=== PATIENT | female | born 1960 | race Caucasian/White ===

== ENCOUNTER → 2019-09-30 15:14 | Outpatient (CLI) | payer OTHER, SELFPAY ==
--- NOTE | ~2019-09-30 | MM_ITS ---
EXAMINATION: MM screening [facility] BI w [place] HISTORY: Screening mammogram TECHNIQUE: Craniocaudal and mediolateral oblique 3-D tomosynthesis images were obtained and synthetic 2-D images were generated. CAD analysis was submitted and interpreted. COMPARISON: 06/02/2018, 04/05/2017, 12/29/2015 BREAST PARENCHYMAL COMPOSITION: The breasts are heterogeneously dense, which may obscure small masses . FINDINGS: There is no evidence of suspicious mass, calcification, or architectural distortion to sugg est malignancy in either breast. There has been no suspicious interval change. IMPRESSION: 1. No mammographic evidence of malignancy. 2. Recommend routine screening mammography in one year. BI-RADS Category 1: Negative Reviewed, dictated and finalized at location B.
== END ==
PROVIDERS: PCP Internal Medicine; Visit Provider Internal Medicine
DX: Z12.31 Encounter for screening mammogram for malignant neoplasm of breast (principal)
CPT/HCPCS: 77063; 77067

== ENCOUNTER → 2020-10-17 15:16 | Outpatient (CLI) | payer OTHER, SELFPAY ==
--- NOTE | ~2020-10-17 | MM_ITS ---
EXAMINATION: MM screening [facility] BI w [place] HISTORY: Screening mammogram TECHNIQUE: Craniocaudal and mediolateral oblique 3-D tomosynthesis images were obtained and synthetic 2-D images were generated. CAD analysis was submitted and interpreted. COMPARISON: 09/30/2019, 06/02/2018, 04/05/2017 BREAST PARENCHYMAL COMPOSITION: The breasts are heterogeneously dense, which may obscure small masses . FINDINGS: There is no evidence of suspicious mass, calcification, or architectural distortion to sugg est malignancy in either breast. There has been no suspicious interval change. IMPRESSION: 1. No mammographic evidence of malignancy. 2. Recommend routine screening mammography in one year. BI-RADS Category 1: Negative Reviewed, dictated and finalized at location A.
== END ==
PROVIDERS: Visit Provider Internal Medicine
DX: Z12.31 Encounter for screening mammogram for malignant neoplasm of breast (principal)
CPT/HCPCS: 77063; 77067

== ENCOUNTER → 2022-01-15 13:48 | Outpatient (CLI) | payer OTHER, SELFPAY ==
--- NOTE | ~2022-01-15 | MM_ITS ---
EXAMINATION: MM screening [facility] w [place] HISTORY: Screening TECHNIQUE: Craniocaudal and mediolateral oblique 3-D tomosynthesis images were obtained and synthetic 2-D images were generated. CAD analysis was submitted and interpreted. COMPARISON: Comparison to multiple prior studies sequentially, with oldest reviewed study dated 08/25. BREAST PARENCHYMAL COMPOSITION: The breasts are heterogeneously dense, which may obscure small masses FINDINGS: There is no evidence of suspicious mass, calcification, or architectural distortion to sugg est malignancy in either breast. There has been no suspicious interval change. IMPRESSION: 1. No mammographic evidence of malignancy. 2. Recommend routine screening mammography in one year. BI-RADS Category 1: Negative Reviewed, dictated and finalized at location A. WARE SYSTEMS ENGINEER
== END ==
PROVIDERS: PCP Internal Medicine; Visit Provider Internal Medicine
DX: Z12.31 Encounter for screening mammogram for malignant neoplasm of breast (principal)
CPT/HCPCS: 77063; 77067

== ENCOUNTER → 2023-04-22 15:15 | Outpatient (CLI) | payer OTHER, SELFPAY ==
--- NOTE | ~2023-04-22 | MM_ITS ---
EXAMINATION: MM screening [facility] w [place] HISTORY: Screening TECHNIQUE: Craniocaudal and mediolateral oblique 3-D tomosynthesis images were obtained and synthetic 2-D images were generated. CAD analysis was submitted and interpreted. COMPARISON: Comparison to multiple prior studies sequentially, with oldest reviewed study dated 12/03. BREAST PARENCHYMAL COMPOSITION: Dense: The breasts are heterogeneously dense, which may obscure small masses FINDINGS: There is no evidence of suspicious mass, calcification, or architectural distortion to sugg est malignancy in either breast. There has been no suspicious interval change. IMPRESSION: 1. No mammographic evidence of malignancy. 2. Recommend routine screening mammography in one year. BI-RADS Category 1: Negative Reviewed, dictated and finalized at location A. [employer]
== END ==
PROVIDERS: PCP Registered Nurse; Visit Provider Registered Nurse
DX: Z12.31 Encounter for screening mammogram for malignant neoplasm of breast (principal)
CPT/HCPCS: 77063; 77067

== ENCOUNTER 2023-12-07 10:14 | Emergency (ER) | payer OTHER, SELFPAY ==
--- NOTE | ~2023-12-07 | XR_ITS ---
EXAMINATION: XR elbow RT min 3V DATE: 12/07/2023 10:43 INDICATION: Radial right wrist pain post fall TECHNIQUE: Anteroposterior, two oblique and lateral views of the right elbow were obtained. COMPARISON: None. FINDINGS: There is a nondisplaced impaction fracture extending across the proximal right radial head neck junct ion. Alignment remains near-anatomic. No other fractures identified. Mild osteoarthritis at the ulnot rochlear articulation at the elbow joint. There is a prominent elbow joint effusion with displacement of the anterior and posterior fat pads. Mild soft tissue along subcutaneous edema at the medial aspe ct of the distal upper arm. IMPRESSION: 1. Nondisplaced mildly impacted fracture at the proximal right radial head neck junction with large r ight elbow joint effusion. Reviewed, dictated and finalized at location A. IMPRESSION: 1. Nondisplaced mildly impacted fracture at the proximal right radial head neck junction with large right elbow joint effusion.
--- NOTE | ~2023-12-07 | XR_ITS ---
EXAMINATION: XR wrist RT min 3V DATE: 12/07/2023 10:43 INDICATION: Right wrist pain post fall TECHNIQUE: Posteroanterior, ulnar deviation, oblique, and lateral views of the right wrist were obtai lauren. COMPARISON: none FINDINGS: Alignment is normal. No fracture. Mild polyarticular osteoarthritis at the wrist, midcarpal, triscaph e, first carpal metacarpal and and first and fifth metacarpophalangeal joints. Soft tissues are unrem arkable. IMPRESSION: 1. 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 No acute osseous abnormality. Reviewed, dictated and finalized at location A. IMPRESSION: 1. 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 No acute osse ous abnormality.
[2023-12-07 10:28] VITALS: BP 134/72; PULSE 63; RESP 16; TEMP 37.3; O2SAT 99
--- NOTE | 2023-12-07 10:43 | ED.UPPEXIN ---
HPI - Extremity Injury (Upper) General Chief Complaint: Extremity Injury, Upper Stated Complaint: right wrist/elbow injury Time Seen by Provider: 12/07/23 10:43 Source: patient, RN notes reviewed and old records reviewed Mode of arrival: ambulatory Limitations: no limitations History of Present Illness HPI narrative: Patient presents with complaints of right wrist and right elbow pain. She reportedly tripped over a curb, fell backwards and landed on the right elbow and right wrist. Accident happened yesterday. She denies other injury and trauma, including head trauma. She has been taking Tylenol for her symptoms, says this has helped. She has some bruising to the right elbow, no obvious deformity. Retains full range of motion. Right wrist with no obvious deformity and full range of motion. No other concerns or complaints today. Related Data Allergies Allergy/AdvReac Type Severity Reaction Status Date / Time poison ken extract Allergy Mild RASH Verified 12/07/23 10:23 Review of Systems Review of Systems: All systems reviewed & are unremarkable except as noted in HPI and below Constitutional: Constitutional: Reports no additional constitutional complaints ENT: Reports system reviewed and no additional complaints, except as documented Cardiovascular: Cardiovascular: Reports no additional cardiovascular complaints Respiratory: Respiratory: Reports no additional respiratory complaints Gastrointestinal: Gastrointestinal: Reports no additional gastrointestinal complaints Musculoskeletal: Musculoskeletal: Reports no additional musculoskeletal complaints, Reports as per HPI, Denies deformity and Reports arthralgias (right wrist, right elbow) [facility] Family History Family History (Updated 12/07/23 @ 11:25 by Yary Celestin APRN) Other Elbow fracture, right Comments At the time of my signature, I reviewed and agree with the nursing past medical, surgical, social, and family history. There is no relevant family history pertinent to the patient complaint. Exam Const: General: cooperative, no acute distress, alert and awake Orientation/consciousness: oriented to person, oriented to place and oriented to time HENMT: Head: normal to inspection Resp: Effort & Inspection: normal respiratory effort and able to speak in complete sentences Auscultation: clear to auscultation bilaterally, no crackles, no rales, no rhonchi and no wheezes Cardio: Palpation: normal PMI Rate: regular rate Rhythm: regular rhythm Heart sounds: S1 normal heart sound present and S2 normal heart sound present Neuro: General: oriented to person, oriented to place and oriented to time Cranial nerves: Yes CN's II-XII intact bilaterally Extrem: Right upper extremity: normal capillary refill, elbow/forearm swelling of the radial head, abnormal ROM held in an abnormal fashion (Unable to fully extend) in flexion, ecchymosis (elbow) and distal pulses intact and wrist normal to inspection Psych: Appearance: grossly normal Thought process: Normal thought process present Insight: Good insight present (Psych) Judgement: Good judgement present (Psych) Course Course Level of Care: Express Care Visit Vital Signs Vital signs: Vital Signs Temperature 99.1 F 12/07/23 10:28 Pulse Rate 63 12/07/23 10:28 Respiratory Rate 16 12/07/23 10:28 Blood Pressure 134/72 12/07/23 10:28 Pulse Oximetry 99 12/07/23 10:28 Oxygen Delivery Room Air 12/07/23 10:28 Temperature 99.1 F 12/07/23 10:28 Pulse Rate 63 12/07/23 10:28 Respiratory Rate 16 12/07/23 10:28 Blood Pressure 134/72 12/07/23 10:28 Pulse Oximetry 99 12/07/23 10:28 Oxygen Delivery Room Air 12/07/23 10:28 Reviewed MDM - Extremity Injury (Upper) MDM Narrative Medical decision making narrative: Patient with same level fall yesterday, now with radial head fracture. Effusion to the elbow. Long-arm splint and sling. Follow-up with orthopedics. Emergency departm
== END 2023-12-07 11:35 | disposition home or self-care (01) ==
PROVIDERS: Emergency Provider Nurse Practitioner Family; PCP Registered Nurse
DX: S52.124A Nondisplaced fracture of head of right radius, initial encounter for closed fracture (principal); W01.0XXA Fall on same level from slipping, tripping and stumbling without subsequent striking against object, initial encounter; M25.531 Pain in right wrist
CPT/HCPCS: 29105; 73080; 73110; 99214; A4565; G0463

== ENCOUNTER 2024-01-14 14:06 | Outpatient (CLI) | payer OTHER, SELFPAY ==
--- NOTE | ~2024-01-14 | XR_ITS ---
XR elbow RT 2V Ordering provider: MAYO Winters History: . S52.131A - Displaced fracture of neck of right radius, in... . Comparison: None. FINDINGS: BONES: Fracture of the radial head is noted. No other fractures seen. Old healed fracture of the dist al humerus is noted. JOINT SPACES: Normal. SOFT TISSUES: Unremarkable. No definite joint effusion. IMPRESSION: Fracture radial head. No displacement seen. Reviewed, dictated and finalized at location A. A ENGINEER
== END 2024-01-14 14:07 | disposition home or self-care (01) ==
PROVIDERS: PCP Registered Nurse; Visit Provider Physician Assistant Surgical
DX: S52.124A Nondisplaced fracture of head of right radius, initial encounter for closed fracture (principal); X58.XXXA Exposure to other specified factors, initial encounter
CPT/HCPCS: 73070

== ENCOUNTER 2024-04-27 15:50 | Outpatient (CLI) | payer OTHER, SELFPAY ==
--- NOTE | ~2024-04-27 | MM_ITS ---
EXAMINATION: MM screening [facility] w [place] HISTORY: Screening mammogram TECHNIQUE: Craniocaudal and mediolateral oblique 3-D tomosynthesis images were obtained and synthetic 2-D images were generated. CAD analysis was submitted and interpreted. COMPARISON: 04/22/2023, 01/15/2022, 10/17/2020 BREAST PARENCHYMAL COMPOSITION:Dense: The breasts are heterogeneously dense, which may obscure small masses. FINDINGS: No suspicious mass, calcification, or architectural distortion are identified in either donavan ast to suggest malignancy. There has been no suspicious interval change. IMPRESSION: No mammographic evidence of malignancy. Recommend routine screening mammography in one year. BI-RADS Category 1: Negative Reviewed, dictated and finalized at location . NGING MACHINE TENDER
== END 2024-04-27 15:51 | disposition home or self-care (01) ==
PROVIDERS: PCP Registered Nurse; Visit Provider Registered Nurse
DX: Z12.31 Encounter for screening mammogram for malignant neoplasm of breast (principal)
CPT/HCPCS: 77063; 77067